=== PATIENT | female | born 1985 | race Caucasian/White ===

== ENCOUNTER 2016-12-31 18:30 | Emergency (ER) | payer OTHER ==
[2016-12-31 18:36] VITALS: BMI 25.7
[2016-12-31 18:39] VITALS: BP 149/90; PULSE 86; RESP 16; TEMP 98.5; O2SAT 100
--- NOTE | 2016-12-31 18:54 | CT ---
PROCEDURE: CT HEAD WITHOUT CONTRAST. HISTORY: code stroke facial numbness and left arm pain COMPARISON: 08/04/2013. TECHNIQUE: Axial computed tomography images were obtained through the head/brain without intravenous contrast. Radiation dose: Total exam DLP = 782.56 mGy-cm. This CT exam was performed using one or more of the following dose reduction techniques: Automated exposure control, adjustment of the mA and/or kV according to patient size, and/or use of iterative reconstruction technique. FINDINGS: HEMORRHAGE: No intracranial hemorrhage. BRAIN: No mass effect or edema. No atrophy or chronic microvascular ischemic changes. VENTRICLES: Unremarkable. No hydrocephalus. CALVARIUM: Unremarkable. PARANASAL SINUSES: Unremarkable as visualized. No significant inflammatory changes. MASTOID AIR CELLS: Unremarkable as visualized. No inflammatory changes. OTHER FINDINGS: None. IMPRESSION: No acute intracranial abnormalities. No significant findings to account for the clinical presentation. No significant interval change compared to the prior examination(s). Code stroke protocol: Study completed 18:41. Radiologist notified 18:47. Results conveyed verbally at 18:51. Findings discussed directly with Dr. Tolliver Interpretation finalized and available for review 18:53. December 31, 2016.
[2016-12-31] MEDS ORDERED: Sodium Chloride 0.9% 500 ML IV STA (19:05)
--- NOTE | 2016-12-31 19:09 | ED PDOC ---
HPI: General Adult Time Seen by Provider: 12/31/16 18:36 Chief Complaint (Nursing): Weakness/Neurological Deficit Chief Complaint (Provider): Weakness/Neurological Deficit History Per: Patient History/Exam Limitations: no limitations Onset/Duration Of Symptoms: Days (since 10 pm last night, 12/30/2016.) Current Symptoms Are (Timing): Still Present Additional Complaint(s): 31 y.o female with a past medical history of Saunders's Disease (Treatment through IV Injection) and Anemia who presents to the emergency department with a complaint of an headache (occipital region) that radiates to the left arm since 10 pm last night, 12/30/2016. Associated with generalized weakness and numbness of the left arm and facial area. Patient states she had never experienced symptoms before. No nausea, vomit, diarrhea, chest pain, dyspnea. No fever, neck pain. Headache is mild, not worst in her life. No abd pain. PMD: [facility] NIHSS Stroke Scale - Date/Time Evaluation Performed Date Performed: 12/31/16 Time Performed: 18:40 When Was NIHSS Performed: Baseline - How Severe is the Stroke Level of Consciousness: 0=Alert LOC to Questions: 0=Both comments correct LOC to commands: 0=Obeys both correctly Best Gaze: 0=Normal Visual: 0=No visual loss Facial: 0=Normal Motor Arm - Left: 0=No drift Motor Arm - Right: 0=No drift Motor Leg - Left: 0=No drift Motor Leg - Right: 0=No drift Limb Ataxia: 0=Absent Sensory: 0=Normal Best Language: 0=No aphasia Dysarthia: 0=Normal articulation Extinction & Inattention (Neglect): 0=Normal, no object Score: 0 rTPA Inclusion/Exclusion - Refusal of Treatment Patient Refused Treatment: No - Inclusion Criteria for Altepase Patient is 18 years or Older: Yes The Clinical Diagnosis of Ischemic Stroke That is Causing a Potentially Disabling Neurological Deficit: No Time of Onset is Well Established to be Less Than 270 Minute Before Treatment Would Begin: No Risk/Benefit Discussed With Patient/Family Member Present: No Past Medical History Reviewed: Historical Data, Nursing Documentation, Vital Signs Vital Signs: Last Vital Signs Temp 98.5 F 12/31/16 18:35 Pulse 86 12/31/16 18:35 Resp 16 12/31/16 18:35 BP 149/90 12/31/16 18:35 Pulse Ox 100 06/16/17 19:19 - Medical History PMH: Anemia, Kidney Stones (previous stent placement), Chronic Kidney Disease Other PMH: saunders's disease - Surgical History Surgical History: Cholecystectomy, (x 3) - Family History Family History: States: Unknown Family Hx - Social History Current smoker - smoking cessation education provided: No Alcohol: None Drugs: Denies - Home Medications Home Medications: Ambulatory Orders Medication Instructions Recorded Prednisone 2.5 mg PO PRN PRN 03/20/14 Acetaminophen with Codeine 1 tab PO Q8H #10 tab 10/05/15 [Tylenol with Codeine No. 3 300 mg-30 mg] Ciprofloxacin HCl [Cipro] 500 mg PO BID #20 tab 10/05/15 Ibuprofen [Motrin] 600 mg PO TID 7 Days 12/31/16 - Allergies Allergies/Adverse Reactions: Allergies Allergy/AdvReac Type Severity Reaction Status Date / Time No Known Allergies Allergy Verified 12/31/16 18:35 Review of Systems ROS Statement: Except As Marked, All Systems Reviewed And Found Negative Constitutional: Positive for: Weakness (Generalized ) Musculoskeletal: Positive for: Arm Pain (Left with numbness), Other (Numbness to the left side of the face) Neurological: Positive for: Numbness, Headache (Occipital region) Physical Exam - Reviewed Nursing Documentation Reviewed: Yes Vital Signs Reviewed: Yes - Physical Exam Appears: Positive for: Non-toxic, No Acute Distress Head Exam: Positive for: ATRAUMATIC, NORMAL INSPECTION, NORMOCEPHALIC Skin: Positive for: Normal Color, Warm, Dry Eye Exam: Positive for: Normal appearance, EOMI, PERRL ENT: Positive for: Normal ENT Inspection. Negative for: Pharyngeal Erythema Neck: Positive for: Normal, Painless ROM, Supple Cardiovascular/Chest: Positive for: Regular Rate, Rhythm. Negative for: Murmur Respiratory: Positive for: Normal Breath Sounds. Negative for: Accessory Muscle Use, Respiratory Distress Gastrointestinal/Abdominal: Positive for: Normal Exam, Soft. Negative for: Tenderness Back: Positive for: Normal Inspection. Negative for: L CVA Tenderness, R CVA Tenderness Extremity: Positive for: Normal ROM, Other (5/5 strength of arm b/l). Negative for: Tenderness, Pedal Edema Neurologic/Psych: Positive for: Alert, director gift II-XII, Oriented. Negative for: Motor/Sensory Deficits, Aphasia, Facial Droop - Laboratory Results Result Diagrams: 12/31/16 18:50 12/31/16 18:50 Interpretation Of Abn Labs: no acute - ECG ECG: Positive for: Interpreted By Me, Viewed By Me ECG Rhythm: Positive for: Normal QRS, Normal ST Segment, Sinus Rhythm O2 Sat by Pulse Oximetry: 100 (RA) Pulse Ox Interpretation: Normal - Radiology X-Ray: Interpreted by Me X-Ray Interpretation: No Acute Disease - CT Scan/US ct Other Rad Studies (CT/US): Read By Radiologist Other Rad Interpretation: no acute - Progress ED Course And Treament: 2057: Stable. Pt. feeling much better. Now admits to frequent migraines. Tolerated PO. FU with pcp. Has congestion, runny nose since yesterday as well. Medical Decision Making Medical Decision Making: Time: 18:36 Initial impression: Headache and numbness of the arm and face Initial plan: --Type and Screen STAT --Electrocardiogram STAT --COMP Metabolic Panel --Hemoglobin A1C STAT --Lipid Panel --Troponin I --EKG-ED --CBC w/ differential --Partial Thromboplastin Time (COAG) --Prothrombin Time (COAG) --Chest Portable (RAD) --Parachute Mender CONT --IV Insertion --ED Obtain Labs STAT --Glucose, Blood, POC --Nursing Swallow Screen --Vital Signs Q15MIN --Reevaluation Time: 18:53 --Head CT FINDINGS: HEMORRHAGE: No intracranial hemorrhage. BRAIN: No mass effect or edema. No atrophy or chronic microvascular ischemic changes. VENTRICLES: Unremarkable. No hydrocephalus. CALVARIUM: Unremarkable. PARANASAL SINUSES: Unremarkable as visualized. No significant inflammatory changes. MASTOID AIR CELLS: Unremarkable as visualized. No inflammatory changes. OTHER FINDINGS: None. IMPRESSION: No acute intracranial abnormalities. No significant findings to account for the clinical presentation. No significant interval change compared to the prior examination(s). Code stroke protocol: Study completed 18:41. Radiologist notified 18:47. Results conveyed verbally at 18:51. Findings discussed directly with Dr. Tolliver Interpretation finalized and available for review 18:53. December 31, 2016. Scribe Attestation: Documented by Mary Rdz, acting as a scribe for Jeff Tolliver MD. Provider Scribe Attestation: All medical record entries made by the Scribe were at my direction and personally dictated by me. I have reviewed the chart and agree that the record accurately reflects my personal performance of the history, physical exam, medical decision making, and the department course for this patient. I have also personally directed, reviewed, and agree with the discharge instructions and disposition. Disposition - Clinical Impression Clinical Impression: Headache, URI, acute - Patient ED Disposition Is Patient to be Admitted: No Counseled Patient/Family Regarding: Studies Performed, Diagnosis, Need For Followup, Rx Given - Disposition Referrals: [facility] [Outside] - 01/03/17 Disposition: Routine/Home Disposition Time: 21:10 Condition: STABLE Additional Instructions: Return if not better in 3 days. Prescriptions: Ibuprofen [Motrin] 600 mg PO TID 7 Days Instructions: Acute Headache (ED), Upper Respiratory Infection (ED) Forms: [employer] (Zimbabwean)
[2016-12-31 19:10] LABS: BASO % 0.5 % (0.0-2.0); EOS # 0.2 K/uL (0.0-0.7); EOS % 1.9 % (0.0-4.0); HEMATOCRIT 33.6 % (34.0-47.0); LYMPH # 2.6 K/uL (1.0-4.3); LYMPH % 28.7 % (20.0-40.0); MEAN CELL VOLUME 73.4 fl (81.0-99.0); MEAN CORPUSCULAR HEMOGLOBIN 22.5 pg (27.0-31.0); MEAN CORPUSCULAR HGB CONC 30.6 g/dL (33.0-37.0); MEAN PLATELET VOLUME 7.5 fl (7.2-11.7); MONO # 0.9 K/uL (0.0-0.8); MONO % 9.9 % (0.0-10.0); NEUT # 5.3 K/uL (1.8-7.0); NRBC % 0.1 % (0.0-0.0); RED CELL DISTRIBUTION WIDTH 29.3 % (11.5-14.5)
[2016-12-31 19:21] LABS: ALB/GLOB RATIO 1.2 (1.0-2.1); ALKALINE PHOSPHATASE 48 U/L (38-126); ALT/SGPT 30 U/L (9-52); AST/SGOT 25 U/L (14-36); BILIRUBIN,TOTAL 0.1 mg/dl (0.2-1.3); BLOOD UREA NITROGEN 16 mg/dl (7-17); CARBON DIOXIDE 25 mmol/L (22-30); CHLORIDE 105 mmol/L (98-107); CHOLESTEROL 235 mg/dL (0-199); GFR AFRICAN-AMERICAN > 60; GLUCOSE,RANDOM 83 mg/dL (65-105); SODIUM 141 mmol/l (132-148); TOTAL PROTEIN 8.2 G/DL (6.3-8.2)
[2016-12-31] MEDS ORDERED: Sodium Chloride 0.9% 1,000 ML IV STA (19:30)
--- NOTE | 2017-01-01 09:52 | RAD ---
HISTORY: code stroke COMPARISON: Comparison chest dated 05/08/2012 FINDINGS: LUNGS: No active pulmonary disease. PLEURA: No significant pleural effusion identified, no pneumothorax apparent. CARDIOVASCULAR: Normal. OSSEOUS STRUCTURES: No significant abnormalities. VISUALIZED UPPER ABDOMEN: Normal. OTHER FINDINGS: None. IMPRESSION: No active disease.
--- NOTE | 2017-01-01 10:46 | CARD ---
APPROVED REPORT EKG Measurement Heart [id number] <Conclusion> Normal sinus rhythm with sinus arrhythmia Left axis deviation
== END 2016-12-31 22:09 | disposition home or self-care (01) ==
LOC: H.ER 18:30
DX: R51 Headache (principal); J06.9 Acute upper respiratory infection, unspecified; R53.1 Weakness; R20.2 Paresthesia of skin

== ENCOUNTER 2017-04-28 16:30 | Emergency (ER) | payer OTHER ==
[2017-04-28 16:30] VITALS: BMI 25.7
[2017-04-28 16:41] VITALS: TEMP 98.1
[2017-04-28 16:59] VITALS: BP 133/66; O2SAT 98
[2017-04-28] MEDS ORDERED: Albuterol-Ipratrop 3 mg / 0.5 (3 ml) UD INH STA (17:09)
--- NOTE | 2017-04-28 17:22 | ED PDOC ---
HPI: SOB/CHF/COPD Time Seen by Provider: 04/28/17 16:42 Chief Complaint (Nursing): Shortness Of Breath Chief Complaint (Provider): Shortness Of Breath History Per: Patient History/Exam Limitations: no limitations Onset/Duration Of Symptoms: Persistent (x2 months) Additional Complaint(s): Kerrie Ervin is a 32 year old female with a history of asthma, anemia (for which she gets IV iron infusions), and Bishop's, the latter of which she has appointment with her parts sales advisor for in May, that presents to the ED with a chief complaint of shortness of breath, ongoing for the past two months and has been worsening since onset. Patient was initially seen by her PMD and given a prescription for 5 days of steroids and Albuterol. Patient reports that she did not improve, and was then given a prescription for Breo and antibiotics, and given an additional injection of steroid. Patient additionally states that she has seen by an ENT for evaluation, but that she has only continued to get worse. Patient states that today her shortness of breath was so severe that when she was climbing up stairs she can typically climb, she became winded, her chest became tight, and it took a lot longer than usual to recover after resting. She reports that neither the Albuterol or Breo are helping anymore, prompting her ED visit. She denies any leg swelling. PMD: Althea Mcgee Past Medical History Reviewed: Historical Data, Nursing Documentation, Vital Signs Vital Signs: Last Vital Signs Temp 98.1 F 04/28/17 16:38 Pulse 67 04/28/17 17:30 Resp 20 04/28/17 17:30 BP 133/66 04/28/17 16:59 Pulse Ox 98 04/28/17 21:29 - Medical History PMH: Anemia, Asthma, Kidney Stones (stent placement and removal), Chronic Kidney Disease Other PMH: Bishop's - Surgical History Surgical History: Cholecystectomy, (x 3) Other surgeries: Laproscopic surgery for ovarian cyst, gastric bypass - Family History Family History: States: Unknown Family Hx, Hypertension Other Family History: high cholesterol - Social History Current smoker - smoking cessation education provided: No - Home Medications Home Medications: Ambulatory Orders Medication Instructions Recorded Prednisone 2.5 mg PO PRN PRN 03/20/14 Acetaminophen with Codeine 1 tab PO Q8H #10 tab 10/05/15 [Tylenol with Codeine No. 3 300 mg-30 mg] Ciprofloxacin HCl [Cipro] 500 mg PO BID #20 tab 10/05/15 Ibuprofen [Motrin] 600 mg PO TID 7 Days tab 12/31/16 Fexofenadine/Pseudoephedrine 1 each PO DAILY #14 tab.er.24h 04/28/17 [Cherelle-D 24 Hour Tablet] Montelukast [Singulair] 10 mg PO DAILY #30 tab 04/28/17 Prednisone 50 mg PO DAILY #4 tablet 04/28/17 - Allergies Allergies/Adverse Reactions: Allergies Allergy/AdvReac Type Severity Reaction Status Date / Time No Known Allergies Allergy Verified 12/31/16 18:35 Review of Systems ROS Statement: Except As Marked, All Systems Reviewed And Found Negative (and as per HPI) ENT: Positive for: Nose Discharge, Nose Congestion. Negative for: Throat Pain Cardiovascular: Positive for: Chest Pain. Negative for: Edema (No leg swelling) Respiratory: Positive for: Cough, Shortness of Breath Physical Exam - Reviewed Nursing Documentation Reviewed: Yes Vital Signs Reviewed: Yes - Physical Exam Appears: Positive for: Non-toxic, In Acute Distress Head Exam: Positive for: ATRAUMATIC, NORMOCEPHALIC Skin: Positive for: Warm, Dry Eye Exam: Positive for: EOMI, PERRL ENT: Negative for: Pharyngeal Erythema, Tonsillar Exudate Neck: Positive for: Painless ROM, Supple Cardiovascular/Chest: Positive for: Regular Rate, Rhythm, Chest Non Tender. Negative for: Murmur Respiratory: Positive for: Wheezing, Respiratory Distress. Negative for: Accessory Muscle Use Gastrointestinal/Abdominal: Positive for: Soft. Negative for: Tenderness Back: Positive for: Normal Inspection. Negative for: Decreased ROM Extremity: Positive for: Normal ROM. Negative for: Pedal Edema Lymphatic: Negative for: Adenopathy (cervical) Neurologic/Psych: Positive for: Alert. Negative for: Motor/Sensory Deficits - Laboratory Results Result Diagrams: 04/28/17 17:53 04/28/17 17:53 - ECG ECG: Positive for: Interpreted By La ECG Rhythm: Positive for: Normal QRS, Normal ST Segment, Sinus Rhythm O2 Sat by Pulse Oximetry: 98 (RA) Pulse Ox Interpretation: Normal - Radiology X-Ray: Interpreted by La X-Ray Interpretation: No Acute Disease Medical Decision Making Medical Decision Making: Impression: Shortness of breath, ddx include Pneumonia vs. Asthma exacerbation vs. PE vs. Anemia vs. CHF Plan: * Chest X-Ray * EKG * Arterial Blood Gas * BNP * CMP * CBC * TSH * Troponin I * D-Dimer * Blood Culture * Urine * Urine Dip * Duoneb 9 ml INH * Methylprednisolone 125 mg IVP * Reevaluation Chest X-Ray IMPRESSION: No central pulmonary embolism is identified. Most of the pulmonary arteries cannot be evaluated due to poor opacification. Repeat CTA or V/Q scan could be performed if there is high suspicion for pulmonary embolism. DW pt findings and plan of care. Mandatory pulmonary follow up. Scribe Attestation: Documented by Katie Rincon, acting as a scribe for Melissa Cross MD. Provider Scribe Attestation: All medical record entries made by the Scribe were at my direction and personally dictated by me. I have reviewed the chart and agree that the record accurately reflects my personal performance of the history, physical exam, medical decision making, and the department course for this patient. I have also personally directed, reviewed, and agree with the discharge instructions and disposition. Disposition - Clinical Impression Clinical Impression: Asthma exacerbation, Bronchospasm Counseled Patient/Family Regarding: Studies Performed, Diagnosis, Need For Followup, Rx Given - Disposition Disposition: Routine/Home Disposition Time: 21:00 Condition: IMPROVED Additional Instructions: FOLLOW UP WITH THE METAL BUILDING ASSEMBLER SCHEDULED. Prescriptions: Fexofenadine/Pseudoephedrine [Cherelle-D 24 Hour Tablet] 1 each PO DAILY #14 tab.er.24h Montelukast [Singulair] 10 mg PO DAILY #30 tab Prednisone 50 mg PO DAILY #4 tablet Instructions: Allergic Rhinitis (ED), Bronchospasm (ED) Forms: [facility] ED School/Work Excuse
[2017-04-28 17:26] LABS: ABG ALLEN TEST YES; ARTERIAL BLOOD GAS HCO3 26.7 mmol/L (21-28); ARTERIAL BLOOD GAS O2 CAPACITY 17.1 mL/dL (16-24); ARTERIAL BLOOD GAS O2 CONTENT 17.1 ML/dL (15-23); ARTERIAL BLOOD GAS PH 7.52 (7.35-7.45); ARTERIAL BLOOD GAS PO2 110 mm/Hg (80-100); ARTERIAL BLOOD HGB O2 SAT 95.6 % (95.0-98.0); CARBOXYHEMOGLOBIN 1.7 % (0.5-1.5); HHB 0.1 % (0.0-5.0); METHEMOGLOBIN 2.7 % (0.0-3.0)
[2017-04-28 18:00] LABS: BASO % 0.4 % (0.0-2.0); EOS # 0.1 K/uL (0.0-0.7); EOS % 1.3 % (0.0-4.0); HEMATOCRIT 39.4 % (34.0-47.0); LYMPH # 2.9 K/uL (1.0-4.3); LYMPH % 30.8 % (20.0-40.0); MEAN CELL VOLUME 88.9 fl (81.0-99.0); MEAN CORPUSCULAR HGB CONC 32.6 g/dL (33.0-37.0); MEAN PLATELET VOLUME 7.5 fl (7.2-11.7); MONO # 0.7 K/uL (0.0-0.8); MONO % 7.8 % (0.0-10.0); NEUT # 5.6 K/uL (1.8-7.0); NEUT % 59.7 % (50.0-75.0); RED CELL DISTRIBUTION WIDTH 12.6 % (11.5-14.5); WHITE BLOOD COUNT 9.4 K/uL (4.8-10.8)
[2017-04-28 18:13] LABS: ALKALINE PHOSPHATASE 61 U/L (38-126); ALT/SGPT 42 U/L (9-52); AST/SGOT 31 U/L (14-36); BILIRUBIN,TOTAL 0.2 mg/dl (0.2-1.3); BLOOD UREA NITROGEN 14 mg/dl (7-17); CALCIUM 9.4 mg/dL (8.4-10.2); CARBON DIOXIDE 25 mmol/L (22-30); CHLORIDE 105 mmol/L (98-107); GFR AFRICAN-AMERICAN > 60; GLUCOSE,RANDOM 86 mg/dL (65-105); POTASSIUM 4.1 MMOL/L (3.6-5.0); SODIUM 142 mmol/l (132-148); TOTAL PROTEIN 8.1 G/DL (6.3-8.2)
[2017-04-28 18:14] LABS: ALB/GLOB RATIO 1.3 (1.0-2.1)
[2017-04-28 18:24] VITALS: PULSE 67; RESP 20
--- NOTE | 2017-04-28 18:38 | RAD ---
HISTORY: Shortness of breath COMPARISON: 04/05/2017 TECHNIQUE: Chest PA and lateral FINDINGS: LUNGS: No active pulmonary disease. PLEURA: No significant pleural effusion identified. No pneumothorax apparent. CARDIOVASCULAR: Normal. OSSEOUS STRUCTURES: No significant abnormalities. VISUALIZED UPPER ABDOMEN: Normal. OTHER FINDINGS: None. IMPRESSION: No active disease. No significant interval change compared to the prior examination(s). Please note: No preliminary report/ innterpretation of this examination provided by emergency department personnel.
[2017-04-28 18:42] LABS: THYROID STIMULATING HORMONE 2.83 mIU/ML (0.46-4.68)
[2017-04-28] MEDS ORDERED: Iodixanol 320 MG/ML 100 ML BOTTLE IV ONE (18:54)
[2017-04-28] MEDS ORDERED: Sodium Chloride 0.9% 50 ML IV ONE (18:54)
--- NOTE | 2017-04-29 08:47 | CT ---
CTA chest PE protocol Indication: Shortness of breath, elevated D-dimer. Technique: Contiguous axial images were obtained through the chest with intravenous contrast enhancement. Sagittal and coronal reconstructions were generated and reviewed. This CT exam was performed using 1 or more of the falling dose reduction techniques: Automated exposure control, adjustment of the MAA and/or kV according to patient size, and/or use of iterative reconstruction technique. IV Contrast: 85 mL Visipaque 320 Radiation dose (DLP): 380.40 MGy-cm. Comparison: Chest x-ray performed 04/28/17 Findings: Visualized portions of the inferior thyroid gland appear grossly unremarkable. The mediastinal and hilar vascular structures appear within normal limits. The heart appears within normal limits of size. There is suboptimal opacification of the pulmonary arteries limiting evaluation for pulmonary embolus. Given this limitation, there are no visible intraluminal filling defects within the central pulmonary arteries to suggest central pulmonary embolism. No focal consolidation. No pleural effusion. No pneumothorax. No suspicious pulmonary nodules measuring greater than 5 mm. Moderate-sized hiatal hernia. Postsurgical gastric changes. Cholecystectomy clips. Mild degenerative changes of the spine. Impression: There is suboptimal opacification of the pulmonary arteries limiting evaluation for pulmonary embolus. Given this limitation, there are no visible intraluminal filling defects within the central pulmonary arteries to suggest central pulmonary embolism. Moderate-sized hiatal hernia. Postsurgical gastric changes. Cholecystectomy clips. Preliminary impression was provided by virtual radiologic.
--- NOTE | 2017-04-30 06:41 | CARD ---
APPROVED REPORT EKG Measurement Heart [id number] DE [id number] <Conclusion> Normal sinus rhythm Normal ECG
== END 2017-04-28 22:03 | disposition home or self-care (01) ==
LOC: H.ER 16:30
DX: J45.901 Unspecified asthma with (acute) exacerbation (principal); J98.01 Acute bronchospasm; Z87.442 Personal history of urinary calculi; N18.9 Chronic kidney disease, unspecified
CPT/HCPCS: 36600; 71020; 71275; 80053; 81025; 82803; 83880; 84443; 84484; 85025; 85378; 87040; 93005; 94640; 96374; 99284; J2930; Q9967

== ENCOUNTER 2017-10-30 00:29 | Emergency (ER) | payer OTHER ==
[2017-10-30 00:41] VITALS: TEMP 98.2
[2017-10-30 00:42] VITALS: BMI 29.7
[2017-10-30] MEDS ORDERED: Magnesium Sulfate 2 gm/50 ml 2 GM/50 ML BAG IV STA (01:08)
[2017-10-30] MEDS ORDERED: Albuterol-Ipratrop 3 mg / 0.5 (3 ml) UD INH STA (01:08)
[2017-10-30] MEDS ORDERED: Magnesium Sulfate 2 GM in Sodium Chloride 0.9% 100 ML IV STA (01:13)
[2017-10-30 01:44] LABS: BASO % 0.3 % (0.0-2.0); EOS # 0.2 K/uL (0.0-0.7); EOS % 1.8 % (0.0-4.0); HEMOGLOBIN 12.4 g/dL (12.0-16.0); LYMPH # 2.8 K/uL (1.0-4.3); LYMPH % 25.3 % (20.0-40.0); MEAN CELL VOLUME 91.9 fl (81.0-99.0); MEAN CORPUSCULAR HEMOGLOBIN 30.6 pg (27.0-31.0); MEAN CORPUSCULAR HGB CONC 33.3 g/dL (33.0-37.0); MEAN PLATELET VOLUME 7.4 fl (7.2-11.7); MONO # 1.1 K/uL (0.0-0.8); MONO % 10.2 % (0.0-10.0); NEUT % 62.4 % (50.0-75.0); RBC 4.04 Mil/uL (3.80-5.20); RED CELL DISTRIBUTION WIDTH 13.7 % (11.5-14.5); WHITE BLOOD COUNT 11.2 K/uL (4.8-10.8)
--- NOTE | 2017-10-30 01:46 | ED PDOC ---
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 She states the symptoms have been intermittent for 1 week, which led to a CT scan a few days ago, indicating the hernia. Patient denies any associated any nausea, vomiting or diarrhea. Patient states she is currently taking methotrexate and low dose prednisone for her [place] and antacids for her hernia. She has no other complaints. Past Medical History Reviewed: Historical Data, Nursing Documentation, Vital Signs Vital Signs: Last Vital Signs Temp 98.2 F 10/30/17 00:40 Pulse 104 H 10/30/17 00:40 Resp BP 151/93 H 10/30/17 00:40 Pulse Ox 100 10/30/17 01:53 - Medical History PMH: Anemia, Asthma, Kidney Stones (stent placement and removal), Chronic Kidney Disease - Surgical History Surgical History: Cholecystectomy, (x 3) - Family History Family History: States: Unknown Family Hx, Hypertension - Living Arrangements Living Arrangements: With Family - Home Medications Home Medications: Ambulatory Orders Medication Instructions Recorded Prednisone 2.5 mg PO PRN PRN 03/20/14 Acetaminophen with Codeine 1 tab PO Q8H #10 tab 10/05/15 [Tylenol with Codeine No. 3 300 mg-30 mg] Ciprofloxacin HCl [Cipro] 500 mg PO BID #20 tab 10/05/15 Ibuprofen [Motrin] 600 mg PO TID 7 Days tab 12/31/16 Fexofenadine/Pseudoephedrine 1 each PO DAILY #14 tab.er.24h 04/28/17 [Cherelle-D 24 Hour Tablet] Montelukast [Singulair] 10 mg PO DAILY #30 tab 04/28/17 Prednisone 50 mg PO DAILY #4 tablet 04/28/17 Albuterol HFA [Ventolin HFA 90 1 - 2 puff IH Q6 PRN #1 inhaler 10/30/17 mcg/actuation (8 g)] - Allergies Allergies/Adverse Reactions: Allergies Allergy/AdvReac Type Severity Reaction Status Date / Time No Known Allergies Allergy Verified 10/30/17 00:47 Review of Systems ROS Statement: Except As Marked, All Systems Reviewed And Found Negative Constitutional: Negative for: Fever, Chills Cardiovascular: Positive for: Chest Pain (tightness) Respiratory: Positive for: Shortness of Breath Gastrointestinal: Negative for: Nausea, Vomiting, Diarrhea Physical Exam - Reviewed Nursing Documentation Reviewed: Yes Vital Signs Reviewed: Yes - Physical Exam Appears: Positive for: Uncomfortable Head Exam: Positive for: ATRAUMATIC, NORMAL INSPECTION, NORMOCEPHALIC Skin: Positive for: Normal Color Eye Exam: Positive for: Normal appearance Neck: Positive for: Normal, Supple Cardiovascular/Chest: Positive for: Regular Rate, Rhythm Respiratory: Positive for: Decreased Breath Sounds (decreased air entry), Wheezing (ilateral expiratory wheeze) Gastrointestinal/Abdominal: Positive for: Normal Exam, Soft. Negative for: Tenderness Extremity: Positive for: Normal ROM. Negative for: Deformity Neurologic/Psych: Positive for: Alert, Oriented. Negative for: Motor/Sensory Deficits - Laboratory Results Result Diagrams: 10/30/17 01:35 10/30/17 01:35 - ECG O2 Sat by Pulse Oximetry: 100 (RA) Pulse Ox Interpretation: Normal - Critical Care Total Time (In Min): 30 Documented Critical Care: Time excludes all time spent performint seperately billable procedures Medical Decision Making Medical Decision Making: Impression: 32yo female with shortness of breath, wheeze in setting of known asthma and Amberly's granulomatosis, recent diagnosis of hernia Plan: -- Labs -- Duoneb 9ml INH -- Solumedrol 125mg IVP -- Magnesium sulfate 2gm in 1L NS -- Chest x-ray Time: 0320 Labs reviewed and show no clinically significant abnormalities. Chest x-ray as read by provider shows no active disease. Patient informed to follow up with her PCP and senior game developer. Patient reports she has a scheduled barium swallow this week, advised to keep that appointment. She also has an albuterol inhaler at home which she did not use today; patient informed to use the inhaler next time she has similar symptoms. Stable for discharge home. Diagnosis: Bronchospasm, diaphragmatical hernia Scribe Attestation: Documented by Jaymie Mayer acting as a scribe for Ethan Sams MD. Provider Attestation: All medical record entries made by the Scribe were at my direction and personally dictated by me. I have reviewed the chart and agree that the record accurately reflects my personal performance of the history, physical exam, medical decision making, and the department course for this patient. I have also personally directed, reviewed, and agree with the discharge instructions and disposition. Disposition - Clinical Impression Clinical Impression: Bronchospasm, Hiatal hernia - Disposition Disposition: Routine/Home Disposition Time: 03:25 Condition: IMPROVED Prescriptions: Albuterol HFA [Ventolin HFA 90 mcg/actuation (8 g)] 1 - 2 puff IH Q6 PRN #1 inhaler PRN Reason: Shortness Of Breath Instructions: Hiatal Hernia, Asthma in Adults Forms: [employer] (Turkish)
[2017-10-30 02:23] LABS: ALB/GLOB RATIO 1.2 (1.0-2.1); ALT/SGPT 44 U/L (9-52); AST/SGOT 21 U/L (14-36); BLOOD UREA NITROGEN 13 mg/dl (7-17); CALCIUM 9.1 mg/dL (8.4-10.2); GFR AFRICAN-AMERICAN > 60; GFR NON-AFRICAN AMERICAN > 60
[2017-10-30 04:16] VITALS: RESP 18
[2017-10-30 04:19] VITALS: BP 107/63; PULSE 89; O2SAT 97
[2017-10-30 05:38] LABS: URINE BILIRUBIN NEGATIVE (NEGATIVE); URINE BLOOD NEGATIVE (NEGATIVE); URINE CLARITY Clear (Clear); URINE COLOR YELLOW (YELLOW); URINE GLUCOSE (UA) NEGATIVE (Normal); URINE PROTEIN TRACE mg/dL (NEGATIVE); URINE UROBILINOGEN 0.2 mg/dL (0.2-1.0)
[2017-10-30 05:39] LABS: SQUAMOUS EPITHIAL 3 /hpf (0-5); URINE AMORPHOUS SEDIMENT FEW /ul (<OCC); URINE BACTERIA FEW (<OCC); URINE LEUKOCYTE ESTERASE NEGATIVE Leu/uL (Negative)
--- NOTE | 2017-10-30 09:33 | CARD ---
APPROVED REPORT EKG Measurement Heart [id number] <Conclusion> Sinus tachycardia Otherwise normal ECG
--- NOTE | 2017-10-30 11:27 | RAD ---
HISTORY: SOB COMPARISON: No prior. FINDINGS: LUNGS: No active pulmonary disease. PLEURA: No significant pleural effusion identified, no pneumothorax apparent. CARDIOVASCULAR: Normal. OSSEOUS STRUCTURES: No significant abnormalities. VISUALIZED UPPER ABDOMEN: Normal. OTHER FINDINGS: None. IMPRESSION: No active disease.
== END 2017-10-30 03:35 | disposition home or self-care (01) ==
LOC: H.ER 00:29
DX: J98.01 Acute bronchospasm (principal); K44.9 Diaphragmatic hernia without obstruction or gangrene; Z87.442 Personal history of urinary calculi
CPT/HCPCS: 71045; 80053; 81003; 81025; 85025; 93005; 96365; 96375; 99284; J2930; J3475

== ENCOUNTER 2017-11-17 06:46 | Emergency (ER) | payer OTHER ==
[2017-11-17 06:46] VITALS: BMI 29.7
[2017-11-17 07:06] VITALS: O2SAT 98
--- NOTE | 2017-11-17 07:18 | ED PDOC ---
HPI: SOB/CHF/COPD Time Seen by Provider: 11/17/17 07:07 Chief Complaint (Nursing): Respiratory Distress History Per: Patient, EMS History/Exam Limitations: no limitations Onset/Duration Of Symptoms: Other (x since last night) Current Symptoms Are (Timing): Still Present Additional Complaint(s): 32-year-old female, with a history of Bishop's granulomatosis, presents to ED via EMS with shortness of breath and chest tightness since last night associated with itchy eyes and non-productive cough. (-) fever, (-) chest pain. Improved with nebulizer this morning. PMD: Althea Mcgee Past Medical History Reviewed: Historical Data, Nursing Documentation, Vital Signs Vital Signs: Last Vital Signs Temp 98.2 F 11/17/17 06:48 Pulse 113 H 11/17/17 07:05 Resp 17 11/17/17 07:05 BP 109/67 11/17/17 07:05 Pulse Ox 98 11/17/17 10:01 - Medical History PMH: Anemia, Asthma, Kidney Stones (stent placement and removal), Chronic Kidney Disease - Surgical History Surgical History: Cholecystectomy, (x 3) - Family History Family History: States: Unknown Family Hx, Hypertension - Home Medications Home Medications: Ambulatory Orders Medication Instructions Recorded Prednisone 2.5 mg PO PRN PRN 03/20/14 Acetaminophen with Codeine 1 tab PO Q8H #10 tab 10/05/15 [Tylenol with Codeine No. 3 300 mg-30 mg] Ciprofloxacin HCl [Cipro] 500 mg PO BID #20 tab 10/05/15 Ibuprofen [Motrin] 600 mg PO TID 7 Days tab 12/31/16 Fexofenadine/Pseudoephedrine 1 each PO DAILY #14 tab.er.24h 04/28/17 [Cherelle-D 24 Hour Tablet] Montelukast [Singulair] 10 mg PO DAILY #30 tab 04/28/17 Prednisone 50 mg PO DAILY #4 tablet 04/28/17 Albuterol HFA [Ventolin HFA 90 1 - 2 puff IH Q6 PRN #1 inhaler 10/30/17 mcg/actuation (8 g)] Albuterol 0.083% [Albuterol 3 ml IH Q8 #1 neb 05/03/18 Sulfate 3 Ml] Non-Formulary 1 ea .ROUTE Q6 #1 ea 11/17/17 Prednisone 50 mg PO DAILY #5 tab 11/17/17 - Allergies Allergies/Adverse Reactions: Allergies Allergy/AdvReac Type Severity Reaction Status Date / Time No Known Allergies Allergy Verified 10/30/17 00:47 Review of Systems ROS Statement: Except As Marked, All Systems Reviewed And Found Negative Constitutional: Negative for: Fever Eyes: Positive for: Other (Itchy eyes) Cardiovascular: Negative for: Chest Pain Respiratory: Positive for: Cough (non-productive), Shortness of Breath Physical Exam - Reviewed Nursing Documentation Reviewed: Yes Vital Signs Reviewed: Yes - Physical Exam Cardiovascular/Chest: Positive for: Tachycardia (with regular rhythm) Respiratory: Negative for: Rales, Rhonchi, Wheezing, Respiratory Distress Gastrointestinal/Abdominal: Positive for: Normal Exam, Soft. Negative for: Tenderness Extremity: Negative for: Calf Tenderness, Swelling - Laboratory Results Result Diagrams: 11/17/17 07:30 11/17/17 07:30 Urine POC: Negative - ECG O2 Sat by Pulse Oximetry: 98 (RA) Pulse Ox Interpretation: Normal Medical Decision Making Medical Decision Making: Time: 07:13 Plan: - EKG - CMP - CBC - D-Dimer D-Dimer, Quantitative Reveals 296 ng/mlDDU [elevated] Time: 07:52 CT Angio Chest PE Protocol Potassium Level Reveals 3.0 MMOL/L [Low] Time: 07:59 K-Dur 20 mEq ER Tab Time: 09:47 CT Angio Chest PE FINDINGS: Pulmonary arteries: No evidence of pulmonary embolism. Aorta: No thoracic aortic aneurysm or dissection. Lungs: Unremarkable. No mass. No consolidation. Pleural space: Unremarkable. No significant effusion. No pneumothorax. Heart: Unremarkable. No cardiomegaly. No significant pericardial effusion. No evidence of RV dysfunction. Mediastinum: Small hiatal hernia with retained enteric contrast. Bones/joints: No acute fracture. Soft tissues: Unremarkable. Lymph nodes: No enlarged lymph nodes. Gallbladder and bile ducts: Cholecystectomy. Kidneys and ureters: Left extrarenal pelvis and/or parapelvic cyst. Stomach and bowel: Gastric sleeve surgery. IMPRESSION: No evidence of pulmonary embolism. Scribe Attestation: Documented by Rocael Clarke, acting as a scribe for Mohsen Diego MD Provider Scribe Attestation: All medical record entries made by the Scribe were at my direction and personally dictated by me. I have reviewed the chart and agree that the record accurately reflects my personal performance of the history, physical exam, medical decision making, and the department course for this patient. I have also personally directed, reviewed, and agree with the discharge instructions and disposition. Disposition - Clinical Impression Clinical Impression: Wegeners granulomatosis - Patient ED Disposition Is Patient to be Admitted: No Counseled Patient/Family Regarding: Studies Performed, Diagnosis, Need For Followup, Rx Given - Disposition Referrals: Tyson Katz MD [Staff Provider] - Disposition: Routine/Home Disposition Time: 10:12 Condition: FAIR Prescriptions: Albuterol 0.083% [Albuterol Sulfate 3 Ml] 3 ml IH Q8 #1 neb Non-Formulary 1 ea .ROUTE Q6 #1 ea Prednisone 50 mg PO DAILY #5 tab Instructions: Granulomatosis With Polyangiitis Forms: [facility] (Irish)
[2017-11-17 07:36] LABS: BASO % 0.3 % (0.0-2.0); EOS # 0.1 K/uL (0.0-0.7); EOS % 1.2 % (0.0-4.0); HEMOGLOBIN 13.4 g/dL (12.0-16.0); LYMPH # 2.7 K/uL (1.0-4.3); LYMPH % 24.8 % (20.0-40.0); MEAN CORPUSCULAR HEMOGLOBIN 30.8 pg (27.0-31.0); MEAN CORPUSCULAR HGB CONC 33.1 g/dL (33.0-37.0); MEAN PLATELET VOLUME 7.5 fl (7.2-11.7); MONO % 8.8 % (0.0-10.0); NEUT % 64.9 % (50.0-75.0); NRBC % 0.1 % (0.0-0.0); RBC 4.34 Mil/uL (3.80-5.20); RED CELL DISTRIBUTION WIDTH 13.7 % (11.5-14.5); WHITE BLOOD COUNT 10.8 K/uL (4.8-10.8)
[2017-11-17 07:52] LABS: ALB/GLOB RATIO 1.2 (1.0-2.1); ALT/SGPT 35 U/L (9-52); AST/SGOT 15 U/L (14-36); BLOOD UREA NITROGEN 15 mg/dl (7-17); CALCIUM 8.8 mg/dL (8.4-10.2); GFR AFRICAN-AMERICAN > 60; GFR NON-AFRICAN AMERICAN > 60
[2017-11-17] MEDS ORDERED: Potassium Chloride 20 mEq ER Tab PO ONE ×2 (07:59→08:34)
[2017-11-17] MEDS ORDERED: Iodixanol 320 MG/ML 100 ML BOTTLE IV ONE (08:38)
--- NOTE | 2017-11-17 09:47 | RAD ---
HISTORY: SOB COMPARISON: 10/30/2017 TECHNIQUE: Chest PA and lateral FINDINGS: LUNGS: No active pulmonary disease. PLEURA: No significant pleural effusion identified. No pneumothorax apparent. CARDIOVASCULAR: Normal. OSSEOUS STRUCTURES: Minor multilevel degenerative spondylosis of the thoracic spine VISUALIZED UPPER ABDOMEN: Metallic clips right upper quadrant of the abdomen consistent with prior cholecystectomy. OTHER FINDINGS: None. IMPRESSION: No active disease.
--- NOTE | 2017-11-17 09:48 | CT ---
EXAM: CT Angiography Chest With Intravenous Contrast EXAM DATE/TIME: 11/17/2017 7:52 AM CLINICAL HISTORY: 32 years old, female; Pain; Chest pain; Type not specified; Additional info: Elevated d dimer wegeners TECHNIQUE: Axial computed tomographic angiography images of the chest with intravenous contrast using pulmonary embolism protocol. All CT scans at this facility use one or more dose reduction techniques, viz.: automated exposure control; ma/kV adjustment per patient size (including targeted exams where dose is matched to indication; i.e. head); or iterative reconstruction technique. MIP reconstructed images were created and reviewed. Coronal and sagittal reformatted images were created and reviewed. CONTRAST: 99 mL of [id number] administered intravenously. COMPARISON: No relevant prior studies available. FINDINGS: Pulmonary arteries: No evidence of pulmonary embolism. Aorta: No thoracic aortic aneurysm or dissection. Lungs: Unremarkable. No mass. No consolidation. Pleural space: Unremarkable. No significant effusion. No pneumothorax. Heart: Unremarkable. No cardiomegaly. No significant pericardial effusion. No evidence of RV dysfunction. Mediastinum: Small hiatal hernia with retained enteric contrast. Bones/joints: No acute fracture. Soft tissues: Unremarkable. Lymph nodes: No enlarged lymph nodes. Gallbladder and bile ducts: Cholecystectomy. Kidneys and ureters: Left extrarenal pelvis and/or parapelvic cyst. Stomach and bowel: Gastric sleeve surgery. IMPRESSION: No evidence of pulmonary embolism.
[2017-11-17 10:35] VITALS: BP 116/71; PULSE 77; RESP 16; TEMP 98.4
--- NOTE | 2017-11-17 22:43 | CARD ---
APPROVED REPORT EKG Measurement Heart [id number] <Conclusion> Sinus tachycardia Cannot rule out Anterior infarct, age undetermined Abnormal ECG
== END 2017-11-17 10:39 | disposition home or self-care (01) ==
LOC: H.ER 06:46
DX: M31.30 Wegener's granulomatosis without renal involvement (principal); Z87.442 Personal history of urinary calculi
CPT/HCPCS: 71046; 71275; 80053; 81025; 85025; 85378; 93005; 99285; Q9967